=== PATIENT | female | born 1990 | race Caucasian/White ===

== ENCOUNTER 2018-12-23 07:29 | Day surgery (SDC) | payer OTHER ==
--- NOTE | 2018-12-22 12:20 | PREOPHP ---
DATE OF ADMISSION: 12/23/2018 The patient is coming for a pelviscopy on Friday the . HISTORY OF PRESENT ILLNESS: This is a 28-year-old female, 0, para 0 patient with a history o f intractable pelvic pain. This patient has been placed on control pills and she has been on a ntibiotics and she has tried medical means for a few months and she has no alleviation of her pain. The patient has been having pain around her periods, but also during a daily basis where her pain is also in the lower abdomen and periumbilical areas. She has no history of constipation. She has no u rinary symptoms. She has history of being depressed on control pills and a CT scan showed a 1. 7 cm right ovarian cyst with bilateral cystic ovaries, and with the possibility of endometriosis. Hui hernandez was given control pills to take with 2 months of no withdrawal and still the adnexa and uteru s are extremely painful with a bulky uterus and with no alleviation of her pain. The patient is unde rgoing a pelviscopy to determine the etiology of her pain to follow up with treatment. She had a his tory of laparoscopic appendectomy and tonsillectomy. REVIEW OF SYSTEMS: Negative for heart disease, lung disease, endocrine disease, orthopedic disease, neurological disease. ALLERGIES: She is not allergic to any medication. SOCIAL HISTORY: She does not drink or smoke. She had a history of only having 1 partner. FAMILY HISTORY: Hypertension, heart attacks, and at this time she was on control pills and ant i-inflammatories. PHYSICAL EXAMINATION: GENERAL APPEARANCE: Good. VITAL SIGNS: The blood pressure is 100/60, pulse is 80. She weighs 132. She is 5 feet 4 inches. HEAD AND NECK: Normal. BREASTS: Soft, nontender, no masses. CHEST: Clear. HEART: Normal sinus rhythm. LUNGS: Clear. ABDOMEN: Soft, nontender, no masses. GENITALIA: Normal vagina, normal cervix. Uterus retroverted, retroflexed. Unable to feel due to th e position of the uterus, but with painful adnexa on both sides. RECTAL: With painful adnexa. EXTREMITIES: Normal. Normal pulses. DIAGNOSIS: Intractable pelvic pain, endometriosis versus chronic PID. PLAN: She is undergoing a diagnostic laparoscopy to assess her diagnosis and for further treatment. She has been advised of the possible risks and possible complications of the procedure with her alte rnatives and options. Written information was provided. She had no more questions and agreed to go ahead with the procedure with full understanding and no more questions. Dictated By: PADMA MENDOZA/JESUS Conf#: [id number] DID#: [id number]
[2018-12-22 17:57] VITALS: BMI 22.3
[~2018-12-23] VITALS: Ht 170.2 cm; Wt 60.6 kg
[2018-12-23] VITALS (14 sets, daily range): BP systolic 105–120; BP diastolic 49–71; PULSE 96–110; RESP 16–24; Ht 170.2 cm; Wt 60.6 kg
[2018-12-23] MEDS ORDERED: NORE1CAP PO (08:07)
[2018-12-23] MEDS ORDERED: CIPR500T4 PO (08:08)
--- NOTE | 2018-12-23 08:46 | PREAC ---
Date/Time of Note Date/Time of Note DATE: 12/23/18 TIME: 08:45 Anesthesia Eval and Record Evaluation Time Pre-Procedure Interview DATE: 12/23/18 TIME: 08:45 Age 28 Sex female NPO: 8 hrs Preoperative diagnosis endometriosis versus PID Planned procedure pelviscopy Past Medical History Past Medical History: None Surgery & Anesthesia Issues No known issue Meds Anticoagulation: No Beta Jazzy within 24 hr: No Reason Beta Jazzy not given: Pt. not on B-Jazzy Reported Medications Ciprofloxacin Hcl* (Ciprofloxacin Hcl*) 500 Mg Tablet, 500 MG PO BID, #14 TAB 12/23/18 Norethindrone-E.estradiol-Iron (Taytulla 1 mg-20 Mcg Capsule) 1 Each Capsule, 1 EACH PO DAILY, CAP 12/23/18 Meds reviewed: Yes Allergies Coded Allergies: No Known Allergy (Unverified , 12/23/18) Allergies Reviewed: Yes Labs/Studies Labs Reviewed: Reviewed by anesthesiologist test: Negative Studies: ECG Pre-procedure Exam Last vitals Vital Signs Date Temp Pulse Resp B/P (MAP) Pulse Ox O2 O2 Flow FiO2 Time Delivery Rate 12/23/18 98.7 107 16 114/70 99 Room Air 08:34 (85) Airway: Adequate mouth opening, Adequate thyromental dist Mallampati: Mallampati I Teeth: Normal Lung: Normal Heart: Normal ASA Physical Status ASA physical status: 1 Emergency: None Planned Anesthetic General/MAC: ETT Planned Pain Management Parenteral pain med, Local by surgeon Pre-operative Attestations Prior to commencing anesthesia and surgery, the patient was re-evaluated, there was verification of: *The patient's identity *The results of appropriate recent lab work and preoperative vital signs *The above evaluation not changing prior to induction *Anesthetic plan, risk benefits, alternative and complications discussed with patient/family; questions answered; patient/family understands, accepts and wishes to proceed. LIA JOHNSON Dec 23, 2018 08:46
[2018-12-23] MEDS ORDERED: PROPOFOL 20 ML ONE (08:55)
[2018-12-23] MEDS ORDERED: ROCURONIUM 50 MG INJ ONE (08:55)
[2018-12-23] MEDS ORDERED: FENTAnyl 50 MCG/ML VIAL ONE (08:55)
[2018-12-23] MEDS ORDERED: LIDOCAINE 2% (SDV) 5 ML INJ ONE (08:55)
[2018-12-23] MEDS ORDERED: MIDAZOLAM 1 MG/ML 2 ML INJ ONE (08:55)
[2018-12-23] MEDS ORDERED: CEFAZOLIN 1 GM INJ ONE (08:55)
[2018-12-23] MEDS ORDERED: METOCLOPRAMIDE 10 MG INJ IV PRN (09:00)
[2018-12-23] MEDS ORDERED: ONDANSETRON 4 MG INJ IV PRN (09:00)
[2018-12-23] MEDS ORDERED: MEPERIDINE 25 MG INJ IV PRN (09:00)
[2018-12-23] MEDS ORDERED: MIDAZOLAM 1 MG/ML 2 ML INJ IV PRN (09:00)
[2018-12-23] MEDS ORDERED: FENTAnyl 50 MCG/ML VIAL IV PRN ×3 (09:00)
[2018-12-23] MEDS ORDERED: OXYCODONE/ACETAMINOPHEN (5/325) TAB PO PRN ×2 (09:00)
--- NOTE | 2018-12-23 09:49 | HPN ---
Date/Time of Note Date/Time of Note DATE: 12/23/18 TIME: 09:48 Interval H&P Admission Note Pt. seen H&P reviewed: No system changes PADMA DASH MD Dec 23, 2018 09:48
[2018-12-23] MEDS ORDERED: BUPIVACAINE 0.5%/EPI (SDV) 30 ML INJ ONE (09:51)
[2018-12-23] MEDS ORDERED: DIPHENHYDRAMINE 50 MG INJ ONE (10:03)
[2018-12-23] MEDS ORDERED: ONDANSETRON 4 MG INJ ONE (10:08)
[2018-12-23] MEDS ORDERED: DEXAMETHASONE 4 MG/ML 5 ML INJ ONE (10:08)
[2018-12-23] MEDS ORDERED: METOCLOPRAMIDE 10 MG INJ ONE (10:08)
[2018-12-23] MEDS ORDERED: FAMOTIDINE 20 MG INJ ONE (10:08)
[2018-12-23] MEDS ORDERED: NEOSTIGMINE 10 MG INJ ONE (10:12)
[2018-12-23] MEDS ORDERED: GLYCOPYRROLATE 0.4 MG INJ ONE (10:12)
[2018-12-23] MEDS ORDERED: KETOROLAC 30 MG INJ ONE (10:12)
[2018-12-23] MEDS ORDERED: METHYLENE BLUE 1% 10 ML INJ ONE (10:41)
[2018-12-23] MEDS ORDERED: ESMOLOL 10 ML ONE (11:04)
--- NOTE | 2018-12-23 11:25 | PD.PPDC ---
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
--- NOTE | 2018-12-23 11:28 | SIPON ---
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
--- NOTE | 2018-12-23 12:00 | PAC ---
Date/Time of Note Date/Time of Note DATE: 12/23/18 TIME: 11:59 Post-Anesthesia Notes Post-Anesthesia Note Last documented vital signs BP 113/50 HR 99 Spo2 99% RR 16 Temp 99 Vital Signs Date Temp Pulse Resp B/P (MAP) Pulse Ox O2 O2 Flow FiO2 Time Delivery Rate 12/23/18 98.7 107 16 114/70 99 Room Air 08:34 (85) Activity: WNL Respiratory function: WNL Cardiovascular function: WNL Mental status: Baseline Pain reasonably controlled: Yes Hydration appropriate: Yes Nausea/Vomiting absent: Yes LIA JOHNSON Dec 23, 2018 12:00
--- NOTE | 2018-12-23 14:09 | OPR ---
DATE OF OPERATION: 12/23/2018 PROCEDURES: Pelviscopy and hydrotubation. PREOPERATIVE DIAGNOSES: 1. Chronic intractable pelvic pain. 2. Endometriosis versus pelvic inflammatory disease. POSTOPERATIVE DIAGNOSES: 1. Early fibroid uterus. 2. Mild endometriosis. 3. Bilateral tubal partial occlusion. SURGEON: Padma Dang MD ANESTHESIA: General. DESCRIPTION OF PROCEDURE: The patient was given general anesthesia, placed in the lithotomy position . The abdomen, perineal and vaginal area were prepped and draped and a HUMI was inserted in the uter us for uterine manipulation. A small incision was made on the inferior edge of the umbilicus and the abdomen was opened in layers, placing 2 sutures on the fascia on the upper side and the lower side. The peritoneum was entered bluntly and the Nikko was inserted, the 10 mm trocar was placed and the CO2 was inflated. A second trocar and cannula were inserted suprapubically over the midline. Visual ization of the uterus revealed that there were no adhesions of the pelvis. There was normal si zed uterus with tiny fibroid on top on the surface anteriorly lower part, left-sided. The tubes appe ared normal at the beginning. Both ovaries were normal, good sized ovaries and there was a small are a of endometriosis implant on the left uterosacral ligament. The methylene blue was injected through the HUMI and we could assess that both tubes were partially blocked. There was a delay on the empty ing of the tubes in both sides which was pushed forcedly and finally we got both of them open. The u pper abdomen was looking good. The liver was normal. There were no adhesions around the liver area. The procedure was finished by removing all the instruments. The gas inflated of the abdomen and th e abdomen was closed with 0 Vicryl for the fascia, 3-0 Monocryl subcuticular to skin incision. Nancy ine solution with 0.5% with epinephrine was injected in both incisions for pain control. The patient tolerated the procedure well and left the OR awake and stable. Sponge counts and instrument counts were correct. Intravenous antibiotics were given for prophylaxis. Blood loss was minimal and the ur ine was clear at the end of the procedure. Dictated By: PADMA MENDOZA/JESUS Conf#: [id number] DID#: [id number]
--- NOTE | 2018-12-24 08:38 | RADRPT ---
Vent Rate: 82 bpm RR Interval: 0 msec RI Interval: 156 msec QRS Duration: 86 msec QT Interval: 360 msec QTC Interval: 420 msec P-R-T [place]: 37 - 78 - 48 degrees Normal sinus rhythm Normal ECG Electronically Signed By: Boris Rutherford
== END 2018-12-23 13:14 | disposition home or self-care (01) ==
LOC: SDS 07:29
PROVIDERS: ATTEND Obstetrics & Gynecology
DX: D25.9 Leiomyoma of uterus, unspecified (principal); R10.2 Pelvic and perineal pain
CPT/HCPCS: 49320; 58350; 93005; J0690; J1100; J1200; J1885; J2175; J2250; J2405; J2710; J2765; J3010; Z7512; Z7610